=== PATIENT | female | born 1965 | race Caucasian/White ===

== ENCOUNTER 2023-07-26 09:47 | Outpatient (CLI) | payer OTHER, SELFPAY | END 2023-07-26 09:48 | disposition home or self-care (01) | LOC: INJ CL 09:50 | PROVIDERS: PCP Family Medicine; Visit Provider Family Medicine | DX: M54.16 Radiculopathy, lumbar region (principal); M51.36 Other intervertebral disc degeneration, lumbar region | CPT/HCPCS: 62323; J0702 ==

== ENCOUNTER 2025-01-17 11:04 | Outpatient (CLI) | payer BC, SELFPAY ==
--- NOTE | 2025-01-17 11:15 | CRLHL7_ITS ---
For Patients: As a result of the Century Cures Act, medical imaging exams and procedure reports are released immediately into your electronic medical record. You may view this report before your referring provider. If you have questions, please contact your health care provider. INDICATION : Right thyroid nodule. TECHNIQUE : Ultrasound-guided fine needle aspiration of thyroid nodule. COMPARISON : Ultrasound 12/27/2024 FINDINGS : PROCEDURE: After the informed consent and time-out, multiple fine needle aspirations were obtained from the thyroid nodule. Fine needle performed. 25 gauge needles were used. Lidocaine was used for local anesthesia. The preliminary cytology was adequate for interpretation. Real-time imaging was used for guidance and needle placement. Post imaging ultrasound demonstrates no immediate complication. IMPRESSION : Successful fine needle aspiration of right thyroid lobe nodule. Dictated by Butch Raymond MD @ 01/17/2025 1:16:07 PM (Electronically Signed)
== END 2025-01-17 11:05 | disposition home or self-care (01) ==
LOC: US 11:05
PROVIDERS: PCP Family Medicine; Visit Provider Family Medicine
DX: E04.2 Nontoxic multinodular goiter (principal)
CPT/HCPCS: 10005; 76942; 88173

== ENCOUNTER 2025-08-19 19:01 | Emergency (ER) | payer BC, SELFPAY ==
--- OUTSIDE RECORDS SUMMARY | 2025-07-23 15:52 | XMS_ITS | Encounter Summary ---
Author Organization [facility] Address [address] [place] [address] Care Team Providers Care Medicare Insurance Specialist Name Role Phone Elsewhere, Pcp Primary Care Provider Unavailabl e Encounter Details DateTypeDepartmentCare Team (Latest Contact Info)Ymiykogopfa35/02/2025 3:52 PM CONVEYOR LINE BATTERY CHARGER - 07/23/2025 11:59 PM CSTHospital Encounter Department of Laboratory Medicine in [place], [place] [address] [facility] [place] [phone] Gerda Higuera, LORENA, C.N.P., M.S. 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) Discharge Disposition: Home or Self Care Social History Tobacco UseTypesPacks/DayYears UsedDateSmoking Tobacco: NeverPassive Smoke Exposure: NeverSmokeless Tobacco: NeverAlcohol UseStandard Drinks/WeekComments Yes2 (1 standard drink = 0.6 oz pure alcohol)1-2 glasses of wine per week Humiliation, Afraid, Rape, and Kick questionnaireAnswerDate RecordedWithin the last year, have you been afraid of your partner or ex-partner?No01/25/2023Within the last year, have you been humiliated or emotionally abused in other ways by your partner or ex-partner?No01/25/2023Within the last year, have you been kicked, hit, slapped, or otherwise physically hurt by your partner or ex-partner?No01/25/2023Within the last year, have you been raped or forced to have any kind of sexual activity by your partner or ex-partner?No01/25/2023 Hunger Vital SignAnswerDate RecordedWithin the past 12 months, you worried that your food would run out before you got the money to buymore.Never true07/22/2025 Within the past 12 months, the food you bought just didn't last and you didn't have money to get more.Never true07/22/2025PRAPARE - TransportationAnswerDate RecordedIn the past 12 months, has lack of transportation kept you from medical appointments or from getting medications?No07/22/2025In the past 12 months, has lack of transportation kept you from meetings, work, or from getting things needed for daily living?No07/22/2025HC UtilitiesAnswerDate RecordedIn the past 12 months has the [employer], gas, oil, or water [employer] threatened to shut off services in your home?No07/22/2025Housing StabilityAnswerDate RecordedWhat is your living situation today?I have a steady place to live07/22/2025 CommentsNoSex and Gender InformationValueDate RecordedSex Assigned at Zfubua9111/17/2017 9:23 PM CDTLegal BgtClyhiu22/02/2017 11:29 PM CSTGender MutlvbihBllsdg48/29/2018 9:23 PM CDTSexual BypwqodjcrsEsfwzswp16/29/2018 9:23 PM 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 BathNot on fileNot on fileNot on filedocumented as of this encounter Medications at Time of Discharge MedicationSigDispense QuantityRefillsLast FilledStart DateEnd Date albuterol 90 mcg/actuation inhaler Inhale 1-2 puffs.05/11/2021 calcium carbonate-vitamin D3 500 mg(1,250mg) -400 unit tablet Take 1 tablet by mouth daily.06/14/2017 cetirizine (for_ZyrTEC) 10 mg tablet Take 10 mg by mouth daily as needed for allergies.03/24/2012 cholecalciferol (for_VITAMIN D3) 1,000 Unit capsule Take 1,000 Units by mouth daily.06/14/2017 estradioL (ESTRACE) 0.5 mg tablet 06/20/2022 famotidine (Pepcid) 20 mg tablet Take 20 mg by mouth 2 (two) times a day.07/18/2024 fluticasone (for_FLONASE) 50 mcg/actuation nasal spray Administer 1 spray into each nostril daily as needed for allergies.07/29/2016 multivitamin tablet Take 1 tablet by mouth daily.04/23/2011 omega 2-rim-ejs-fish oil 1,000 mg (120 mg-180 mg) capsule Take 1,000 mg by mouth 2 (two) times a day. 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) ASPARTATE AMINOTRANSFERASE (AST), S/XPsgtdjy68/02/2025 4:01 PM CONVEYOR LINE BATTERY CHARGER Leukemia Hairy Cell 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 Remission (HCC) ALKALINE PHOSPHATASE, S/GEdbxbaj53/02/2025 4:01 PM CONVEYOR LINE BATTERY CHARGER Leukemia Hairy Cell 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 Remission (HCC) LACTATE DEHYDROGENASE (LD), GAybqsjj53/02/2025 4:01 PM CONVEYOR LINE BATTERY CHARGER Leukemia Hairy Cell 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 Remission (HCC) IMMUNOGLOBULIN G (IGG), VRfggeck94/02/2025 4:01 PM CONVEYOR LINE BATTERY CHARGER Leukemia Hairy Cell 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 Remission (HCC) CREATININE WITH EGFR, S/CCilfdjy32/02/2025 4:01 PM CONVEYOR LINE BATTERY CHARGER Leukemia Hairy Cell 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 Remission (HCC) BILIRUBIN, TOT, S/CGzkkfbk07/02/2025 4:01 PM CONVEYOR LINE BATTERY CHARGER Leukemia Hairy Cell 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 Remission (HCC) documented in this encounter Results * Reticulocyte Profile (07/23/2025 4:01 PM CONVEYOR LINE BATTERY CHARGER)ComponentValueRef RangeTest MethodAnalysis TimePerformed AtPathologist SignatureReticulocytes, B1.400.60 - 2.71 %07/23/2025 10:22 PM CSTAUSTAbsolute Yhnhzarzqcyj89.330.4 - 110.9 x10(9)/L109/23/2024 10:22 PM CSTAUSTImmature Reticulocyte Fraction6.23.0 - 15.9 %07/23/2025 10:22 PM CSTAUSTReticulocyte Bptppmdnja46.530.0 - 37.6 pg 07/23/2025 10:22 PM CSTAUSTSpecimen (Source)Anatomical Location / Laterality Collection Method / VolumeCollection TimeReceived TimeBlood (Blood, Venous) 07/23/2025 4:01 PM CST07/23/2025 9:48 PM CONVEYOR LINE BATTERY CHARGER Narrative Authorizing ProviderResult TypeResult StatusAmy Ceci Higuera APRN C.N.P., M.S.LAB BLOOD ADD-ONFinal ResultPerforming OrganizationAddressCity/State/ZIP CodePhone Number [facility] [address] [place] [address], [facility] AUSChi [facility] - [facility] [address] [place] [address] * Immunoglobulin G (IgG) (07/23/2025 4:01 PM CONVEYOR LINE BATTERY CHARGER)ComponentValueRef RangeTest MethodAnalysis TimePerformed AtPathologist SignatureImmunoglobulin G (IgG), S 890646 - 1590 mg/dL07/24/2025 8:24 AM CSTSDSCSpecimen (Source)Anatomical Location / LateralityCollection Method / VolumeCollection TimeReceived Time Blood (Blood, Venous)07/23/2025 4:01 PM CST07/24/2025 6:36 AM CONVEYOR LINE BATTERY CHARGER Narrative Authorizing ProviderResult TypeResult StatusAmy L Behkirit CARRILLO C.N.P., M.S.LAB BLOOD ADD-ONFinal ResultPerforming OrganizationAddressCity/State/ZIP CodePhone Number [facility] [address] [place] [address] [facility] [address] [place] [address] * LD (Lactate Dehydrogenase) (07/23/2025 4:01 PM CONVEYOR LINE BATTERY CHARGER)ComponentValueRef RangeTest MethodAnalysis TimePerformed AtPathologist SignatureLactate Dehydrogenase (LD), [id number] - 222 U/L109/23/2024 10:02 PM CSTAUSTSpecimen (Source)Anatomical Location / LateralityCollection Method / VolumeCollection TimeReceived Time Blood (Blood, Venous)07/23/2025 4:01 PM CST07/23/2025 9:48 PM CONVEYOR LINE BATTERY CHARGER Narrative Authorizing ProviderResult TypeResult StatusAmy Ceci Higuera APRN, C.N.P., M.S.LAB BLOOD NON ADD-ONFinal ResultPerforming OrganizationAddressCity/State/ZIP Code Phone Number [facility] [address] [place] [address], [facility] AUS [facility] - [facility] [address] [place] [address] * Creatinine with Estimated GFR (07/23/2025 4:01 PM CONVEYOR LINE BATTERY CHARGER)ComponentValueRef Range Test MethodAnalysis TimePerformed AtPathologist SignatureCreatinine0.720.59 - 1.04 mg/dL07/23/2025 6:02 PM CSTOWATEstimated GFR (eGFR)>90>=60 mL/min/BSA 07/23/2025 6:02 PM CSTOWATComment: Estimated GFR calculated using the 2020 CKD_EPI creatinine equation. Specimen (Source)Anatomical Location / LateralityCollection Method / Volume Collection TimeReceived TimeBlood (Blood, Venous)07/23/2025 4:01 PM CONVEYOR LINE BATTERY CHARGER 07/23/2025 5:33 PM CONVEYOR LINE BATTERY CHARGER Narrative Authorizing ProviderResult TypeResult StatusAmy Ceci Higuera APRN, C.N.P., M.S.LAB BLOOD ADD-ONFinal ResultPerforming OrganizationAddressCity/State/ZIP CodePhone Number [facility] [address] [place] [address], [facility] OWAT [facility] [place] [address] [place] [address] * (ABNORMAL) CBC with Differential, Blood (07/23/2025 4:01 PM CONVEYOR LINE BATTERY CHARGER)ComponentValue Ref RangeTest MethodAnalysis TimePerformed AtPathologist SignatureHemoglobin 13.511.6 - 15.0 g/dL07/23/2025 5:34 PM BTIZFGSTlokniwwnx10.535.5 - 44.9 % 07/23/2025 5:34 PM CSTOWATErythrocytes4.293.92 - 5.13 x10(12)/L109/23/2024 5:34 PM QWGZKVRALC47.178.2 - 97.9 fL07/23/2025 5:34 PM CSTOWATRBC Distrib Width11.7 (L)12.2 - 16.1 %07/23/2025 5:34 PM CSTOWATPlatelet Eijbg167453 - 371 x10(9)/L 07/23/2025 5:34 PM CSTOWATLeukocytes5.83.4 - 9.6 x10(9)/L109/23/2024 5:34 PM CSTOWATNeutrophils3.401.56 - 6.45 x10(9)/L109/23/2024 5:34 PM CSTOWAT Lymphocytes1.610.95 - 3.07 x10(9)/L109/23/2024 5:34 PM CSTOWATMonocytes0.640.26 - 0.81 x10(9)/L109/23/2024 5:34 PM CSTOWATEosinophils0.150.03 - 0.48 x10(9)/L 07/23/2025 5:34 PM CSTOWATBasophils0.030.01 - 0.08 x10(9)/L109/23/2024 5:34 PM CSTOWATSpecimen (Source)Anatomical Location / LateralityCollection Method / VolumeCollection TimeReceived TimeBlood (Blood, Venous)07/23/2025 4:01 PM CONVEYOR LINE BATTERY CHARGER 07/23/2025 5:33 PM CONVEYOR LINE BATTERY CHARGER Narrative Authorizing ProviderResult TypeResult StatusAmy L Behkirit CARRILLO C.N.P., M.S.LAB BLOOD ADD-ONFinal ResultPerforming OrganizationAddressCity/State/ZIP CodePhone Number [facility] [address] [place] [address], [facility] [place] [address] [place] [address] * Bilirubin, Total (07/23/2025 4:01 PM CONVEYOR LINE BATTERY CHARGER)ComponentValueRef RangeTest Method Analysis TimePerformed AtPathologist SignatureBilirubin, Total, P0.40.0 - 1.2 mg/dL07/23/2025 6:02 PM CSTOWATSpecimen (Source)Anatomical Location / LateralityCollection Method / VolumeCollection TimeReceived TimeBlood (Blood, Venous)07/23/2025 4:01 PM CST07/23/2025 5:33 PM CONVEYOR LINE BATTERY CHARGER Narrative Authorizing ProviderResult TypeResult StatusAmy Ceci Higuera APRN, C.N.P., M.S.LAB BLOOD ADD-ONFinal ResultPerforming OrganizationAddressCity/State/ZIP CodePhone Number [facility] [address] [place] [address], [facility] [place] [address] [place] [address] * AST (Aspartate Aminotransferase) (07/23/2025 4:01 PM CONVEYOR LINE BATTERY CHARGER)ComponentValueRef RangeTest MethodAnalysis TimePerformed AtPathologist SignatureAspartate Aminotransferase (AST), P288 - 43 U/L109/23/2024 6:02 PM CSTOWATSpecimen (Source)Anatomical Location / LateralityCollection Method / VolumeCollection TimeReceived TimeBlood (Blood, Venous)07/23/2025 4:01 PM CST07/23/2025 5:33 PM CONVEYOR LINE BATTERY CHARGER Narrative Authorizing ProviderResult TypeResult StatusAmy Ceci Higuera APRN, C.N.P., M.S.LAB BLOOD ADD-ONFinal ResultPerforming OrganizationAddressCity/State/ZIP CodePhone Number [facility] [address] [place] [address], [facility] [place] [address] [place] [address] * Alkaline Phosphatase (07/23/2025 4:01 PM CONVEYOR LINE BATTERY CHARGER)ComponentValueRef RangeTest MethodAnalysis TimePerformed AtPathologist SignatureAlkaline Phosphatase, P48 35 - 104 U/L109/23/2024 6:02 PM CSTOWATSpecimen (Source)Anatomical Location / LateralityCollection Method / VolumeCollection TimeReceived TimeBlood (Blood, Venous)07/23/2025 4:01 PM CST07/23/2025 5:33 PM CONVEYOR LINE BATTERY CHARGER Narrative Authorizing ProviderResult TypeResult StatusAmy L Davida CARRILLO, C.N.P., M.S.LAB BLOOD ADD-ONFinal ResultPerforming OrganizationAddressCity/State/ZIP CodePhone Number [facility] [address] [place] [address], [facility] [place] [address] [place] [address] documented in this encounter Visit Diagnoses Diagnosis 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
--- OUTSIDE RECORDS SUMMARY | 2025-07-26 16:00 | XMS_ITS | Encounter Summary ---
Author Organization [facility] Address [address] [place] [address] Care Team Providers Care Speech Scientist Name Role Phone Elsewhere, Pcp Primary Care Provider Unavailabl e Reason for Referral * Outpatient (Routine) - AuthorizedSpecialtyDiagnoses / ProceduresReferred By ContactReferred To ContactHematology Oncology Diagnoses 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) Gerda Higuera APRN, C.N.P., M.S. 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 [address] [place] [address] Phone: tel: fax: [facility] Referral IDStatusReasonStart DateExpiration DateVisits RequestedVisits [id number]/24/202512/24/202611 Encounter Details DateTypeDepartmentCare Team (Latest Contact Info)Aqikszflkgw76/05/2025 4:00 PM CSTTelemedicine Division of Hematology in [place], [place] [address] [place] [address] Gerda Higuera, LORENA, C.N.P., M.S. [address] [place] [phone] 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) (Primary Dx) Social History Tobacco UseTypesPacks/DayYears UsedDateSmoking Tobacco: NeverPassive [...] RecordedIn the past 12 months has the electric, gas, oil, or water company threatened to shut off services in your home?No07/22/2025Housing StabilityAnswerDate RecordedWhat is your living situation today?I have a steady place to live07/22/2025 CommentsNoSex and Gender InformationValueDate RecordedSex Assigned at Fnddpw6611/17/2017 9:23 PM CDTLegal VorLxbzvq60/02/2017 11:29 PM CSTGender SgijffkwYkpmsz49/29/2018 9:23 PM CDTSexual QeqqstfhawrNmppzaus98/29/2018 9:23 PM CDTOccupationIndustryJob Start DateJob End 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 - 07/26/2025 4:00 PM CST SUBJECTIVE Primary manager mutual fund: Dr. Rah Parks ([phone]) CHIEF COMPLAINT/REASON FOR VISIT Hairy cell leukemia follow up Consult conducted via real-time audio/video technology by Gerda Higuera APRN, Surinder.N.P., M.S. in [facility] to the patient in Patient's Home HISTORY OF PRESENT ILLNESS Oncology History Overview Note 1. January 2013, Mrs. [place] was diagnosed with hairy cell leukemia in the course of evaluation of thrombocytopenia and mild splenomegaly in January 2013. 2. On March 01, 2013, received the first treatment with cladribine infusion lasting for seven days. She tolerated the infusion well. Had no significant side effects except for discomfort in the upper abdomen as well as in the middle of the chest. CT study, chemistry, and labs were completely normal.Several days after the infusion was completed, the patient developed a rash, went to the ER, and had received dexamethasone and Benadryl. The rash resolved by itself. She developed neutropenia which improved gradually. 3. April 2013, was found to have malaise, headaches, and low-grade temperature. Due to concern for cladribine-induced immunosuppression, an LP was done, which did not show evidence of fungal or viral infection. In May 2013, the patient had a bone marrow biopsy which did not show residual disease with normalized blood counts. Surveillance was started. October 2019: She was noted to have increasing monocytopenia and bone pain suggestive of recurrentdisease. A repeat bone marrow biopsy showed 10% focal involvement by hairy cell leukemia. CBC profile showed that the hemoglobin was 13.8, platelet count is a 156, and the total WBC count is 3.4 withan absolute neutrophil count of 2.03. She therefore started treatment with pentostatin [2 mg/m2] and rituximab [187.5 mg/m2] on October 31, 2019; and received only 1 cycle of this treatment. Because ofthe start of the COVID-19 pandemic, further treatment with pentostatin and rituximab was suspended. INTERVAL HISTORY The patient returns to the clinic today via video visit. Since her last visit; which was 6 months ago; she has been doing OK. She does note that last month she had a bout of vertigo and needed to seePT/OT for this. She has had this once in the past as well. She denies any fevers, infections, illness or other concerns. 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 ROS: Reviewed and negative unless otherwise noted in HPI. Current Outpatient Medications Medication Instructions albuterol 90 mcg/actuation inhaler 1-2 puffs calcium carbonate-vitamin D3 500 mg(1,250mg) -400 unit tablet 1 tablet, Daily cetirizine (ZYRTEC) 10 mg, Daily PRN cholecalciferol (VITAMIN D3) 1,000 Units, Daily estradioL (ESTRACE) 0.5 mg tablet No dose, route, or frequency recorded. famotidine (PEPCID) 20 mg, 2 times daily fluticasone (for_FLONASE) 50 mcg/actuation nasal spray 1 spray, Daily PRN multivitamin tablet 1 tablet, Daily omega 0-rfu-xlr-fish oil 1,000 mg (120 mg-180 mg) capsule 1,000 mg, 2 times daily predniSONE (DELTASONE) 10 mg, Daily rosuvastatin (CRESTOR) 5 mg tablet OBJECTIVE There were no vitals filed for this visit. There is no height or weight on file to calculate BSA. Current Outpatient Medications: albuterol 90 mcg/actuation inhaler, Inhale 1-2 puffs., Disp: , Rfl: calcium carbonate-vitamin D3 500 mg(1,250mg) -400 unit tablet, Take 1 tablet by mouth daily. , Disp: , Rfl: cetirizine (for_ZyrTEC) 10 mg tablet, Take 10 mg by mouth daily as needed for allergies. , Disp: , Rfl: cholecalciferol (for_VITAMIN D3) 1,000 Unit capsule, Take 1,000 Units by mouth daily. , Disp: , Rfl: estradioL (ESTRACE) 0.5 mg tablet, , Disp: , Rfl: famotidine (Pepcid) 20 mg tablet, Take 20 mg by mouth 2 (two) times a day., Disp: , Rfl: fluticasone (for_FLONASE) 50 mcg/actuation nasal spray, Administer 1 spray into each nostril daily as needed for allergies. , Disp: , Rfl: multivitamin tablet, Take 1 tablet by mouth daily. , Disp: , Rfl: omega 8-azg-fot-fish oil 1,000 mg (120 mg-180 mg) capsule, Take 1,000 mg by mouth 2 (two) times a day., Disp: , Rfl: predniSONE (Deltasone) 10 mg tablet, Take 10 mg by mouth daily., Disp: , Rfl: rosuvastatin (CRESTOR) 5 mg tablet, , Disp: , Rfl: PHYSICAL EXAM: General: pleasant, nontoxic appearing, in no acute distress. Neuro: alert and oriented to person, place, and time; no focal deficits noted Eyes: anicteric, with extraocular movements intact Lungs: breathing comfortably on room air Remainder deferred due to video visit. DIAGNOSTICS Reviewed in [facility] from 07/23/2025 ASSESSMENT/PLAN #1 Hairy cell leukemia, with initial diagnosis in 2012, status post therapy with single agent cladribine, achievement of complete remission, with recurrent disease in October 2019, with 1 cycle of therapy with pentostatin and rituximab, with a achievement of complete remission, with no evidence of recurrence today, with continued observation Labs reveal no cytopenias. In previous times of treatment she has had neutropenia, thrombocytopeniaand monocytopenia. We will plan to see her back again in 6 months in person or sooner if needed. Patient is in agreement with the plan today. She knows how to get in touch with our team in betweenappointments if needed. PLAN: Observation FOLLOW UP: Return to clinic in 6 months PATIENT EDUCATION Ready to learn, no apparent learning barriers were identified; learning preferences include listening. Explained diagnosis and treatment plan; patient expressed understanding of the content. ANDREA Merrill personally spent over half of a total of 25 minutes face to face with the patient in counseling and discussion and/or coordination of care as described above. Electronically signed by: Gerda Higuera APRN, C.Tobias, M.S. 07/26/2025 4:12 PM [facility] documented in this encounter Plan of Treatment NameTypePriorityAssociated DiagnosesOrder ScheduleAlkaline PhosphataseLabRoutine 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) Expected: 01/13/2026 (Approximate), Expires: 10/24/2026ST (Aspartate Aminotransferase)LabRoutine 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) Expected: 01/13/2026 (Approximate), Expires: 10/24/2026ilirubin, TotalLab Routine 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) Expected: 01/13/2026 (Approximate), Expires: 10/24/2026CBC with Differential, BloodLabRoutine 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) Expected: 01/13/2026 (Approximate), Expires: 10/24/2026Creatinine with Estimated GFRLabRoutine 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) Expected: 01/13/2026 (Approximate), Expires: 10/24/2026LD (Lactate Dehydrogenase)LabRoutine 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) Expected: 01/13/2026 (Approximate), Expires: 10/24/2026Reticulocyte ProfileLab Routine 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) Expected: 01/13/2026 (Approximate), Expires: 07/26/2026Immunoglobulin G (IgG)Lab Routine 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) Expected: 01/13/2026 (Approximate), Expires: 10/24/2026NameTypePriority Associated DiagnosesOrder ScheduleHematology office visit (clinic) [place]; CLL; GeneralOutpatient ReferralRoutine 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) Expected: 01/13/2026 (Approximate), Expires: 10/24/2026documented as of this encounter Visit Diagnoses Diagnosis 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)- Primary documented in this encounter Care Teams Team MemberRelationshipSpecialtyStart DateEnd Date Elsewhere, Pcp PCP - General Medicine11/18/17documented as of this encounter
--- OUTSIDE RECORDS SUMMARY | 2025-08-19 19:03 | XMS_ITS | Clinical Summary ---
Author Organization [facility] Address [address] [place] [address] Care Team Providers Care Csw Name Role Phone Elsewhere, Pcp Primary Care Provider Unavailabl e Source Comments Patient records contain information from all sites at [facility]. For routine questions regarding patient records, call [phone] during business hours, M-F 8:00 AM - 5:00 PM Central Time. Record requests for emergency care only can be directed to [phone] at any time.[facility] Allergies Active AllergyReactionsCriticalityNoted DateCommentsCiprofloxacinPalpitations 09/03/20066624FoizoxailrRkoqWakilz86/24/2019Diatrizoate FlpwarsuoMivb19/14/2017 Itching Next day rash on entire body, some throat tightness. 3 days later rash not improved with medication, leg/feet swelling, eye pain (see encounter from 02/04/17) Iodinated Contrast LhprkJdof39/13/2017 rash NitrofurantoinOther (see comments)03/27/2012 Leukemia-related problems Sars-Cov-2 (Covid-19) - PfizerAnaphylaxis,Anxiety,Edema (Reselect Reaction), Headache,Palpitations,Shortness of breath (Reselect Reaction)High10/26/2020 Medications * This document contains information received from the source organization and may not represent a complete record from that organization. MedicationSigDispense QuantityRefillsLast FilledStart DateEnd DateStatus calcium carbonate-vitamin D3 500 mg(1,250mg) -400 unit tablet Take 1 tablet by mouth daily.06/14/2017Active cetirizine (for_ZyrTEC) 10 mg tablet Take 10 mg by mouth daily as needed for allergies.03/24/2012ctive cholecalciferol (for_VITAMIN D3) 1,000 Unit capsule Take 1,000 Units by mouth daily.06/14/2017Active fluticasone (for_FLONASE) 50 mcg/actuation nasal spray Administer 1 spray into each nostril daily as needed for allergies.07/29/2016 Active multivitamin tablet Take 1 tablet by mouth daily.04/23/2011ctive omega 0-mhz-xls-fish oil 1,000 mg (120 mg-180 mg) capsule Take 1,000 mg by mouth 2 (two) times a day.Active albuterol 90 mcg/actuation inhaler Inhale 1-2 puffs.1Active estradioL (ESTRACE) 0.5 mg tablet 06/20/2022ctive rosuvastatin (CRESTOR) 5 mg tablet 3Active famotidine (Pepcid) 20 mg tablet Take 20 mg by mouth 2 (two) times a day.4Active predniSONE (Deltasone) 10 mg tablet Take 10 mg by mouth daily.5Active Active Problems ProblemNoted DateDiagnosed DateNeed Vaccine Itwnxmlddvhx00/16/2021Reaction Anaphylactic Personal Izrvixf25/16/2021Pain Shoulder Left08/29/2020 Gwinimocxilghqv46/05/2021creening Mammogram Average Risk Zxhtaho0605/23/2019Pain Bone03/14/20190843Ijibushhh42/08/2019 Overview (09/29/2018): Added automatically from request for surgery [id number] Stone Kidney And Siwdnsze40/08/2019 Overview (09/29/2018): Added automatically from request for surgery [id number] Leiomyoma (Fibroid) Oixtny0802/02/2018 Overview (02/02/2018): Added automatically from request for surgery [id number] Exposure Diethylstilbestrol When Was Fetus Not Now11/18/2017 Overview (11/18/2017): SEVERINO exposure when fetus Pain Pelvic Tsjapy3911/18/20174964Fdtgsbllknozeo28/17/2017Calculus of huwwku3902/09/2017 Sjksiezt30/09/2015 Overview (11/16/2017): Overview: Taking Ativan 0.5 mg at bedtime for sleep. Working on insomnia issues. Ok for #30 to last for 2 months. JMB Polyp Colon Personal History, Unspecified Type03/20/2014Deficiency Vitamin D 03/20/2014Squamous Cell Carcinoma Of Skin Of Scalp And Neck08/22/2012 Yvjxatqbpwvm62/03/2010Cystitis Interstitial Asropfg2306/24/2010Fibroid Uterus Yfgrnoidfy87/03/2010Headache Xvpaqsmhtpy81/10/2834Qsuqrubomuwh87/10/2008 Premenstrual Tension Kjfccxmj73/21/2007Pure Tnutctmvldbqerpqrfxi88/21/2007 Rhinitis Mtmltuav49/13/2007Fibrocystic Breast Qbhyditvc55/13/2007 Resolved Problems ProblemNoted DateDiagnosed DateResolved DateHairy Cell Leukemia In Remission Palpitations12/25/Lipoma09/07/ Dyspnea NOS03/02/Irritable Huiydiq52Cystocele Frequency Txdtjoe69Irregular menstrual cycle Encounters DateTypeDepartmentCare KmntCokmmrmfmgy69/05/2025 4:00 PM CSTTelemedicine Division of Hematology in [place], [place] [address] [place] [address] Gerda Higuera APRN, C.N.P., M.S. 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 Leukemia Hairy Cell 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 Remission (HCC) Discharge Disposition: Home or Self Carefrom Last 3 Months Immunizations ImmunizationAdministration DatesNext DmiM6N4 All Forms08/29/2009H1N1 Inj 08/29/2009HepA Adult06/21/1997,11/09/1996Influenza, Seasonal, Injectable 07/06/2013,08/16/2012,07/01/2006,06/23/2005,08/10/2004,06/20/2003Influenza, Nvnqsqiuivx35/10/2006,06/23/2005,08/10/2004,06/20/20031048BGII-JUU-8 (COVID-19) - PFIZER (Discontinued)(12 years or older)09/11/20215123IREW-DIX-4 (COVID-19) - PFIZER BIVALENT TS(Discontinued)(12 YEARS OR OLDER)06/25/20220779NERE-WNU-8 (COVID-19) - PFIZER TS(Discontinued)(12 years or older)08/13/2021Td (Adult), adsorbed 05/22/2003Tdap03/24/2012,08/22/2002influenza trivalent vaccine (6 months and older)(PF)05/07/2010influenza vaccine quad (FLUZONE/FLUARIX) (6 months and older)(PF)04/30/2017,04/23/2016,04/14/2015,08/28/2014 Family History Medical HistoryRelationNameCommentsArrhythmiaDaughterJessicaShe also had uticaria pigmentosaColon polypsFatherMarlin WegnerDementiaFatherMarlin Kailey HypertensionFatherMarlin WegnerSkin cancerFatherMarlin WegnerHypertensionMother Alyse WegnerOsteoporosisMotherPhyllis WegnerSkin cancerMotherPhyllis Kailey Thyroid diseaseMotherPhyllis WegnerThyroid cancerSisterKrisADD / ADHDSonRyan JandroAsthmaSonRyan JandroRelationNameStatusCommentsDaughterJessicaDeceased FatherMarlin WegnerDeceasedMotherPhyllis WegnerSisterKrisAliveSonRyan Jandro Social History Tobacco UseTypesPacks/DayYears UsedDateSmoking Tobacco: NeverPassive Smoke Exposure: NeverSmokeless Tobacco: Never Tobacco Cessation:Counseling Given: Not Answered Alcohol UseStandard Drinks/WeekCommentsYes2 (1 standard drink = 0.6 oz pure alcohol)1-2 glasses of wine per weekHumiliation, Afraid, Rape, and Kick questionnaireAnswerDate RecordedWithin the last year, have you been afraid of your partner or ex-partner?No01/25/2023Within the last year, have you been humiliated or emotionally abused in other ways by your partner or ex-partner?No 01/25/2023Within the last year, have you been kicked, hit, slapped, or otherwise physically hurt by your partner or ex-partner?No01/25/2023Within the last year, have you been raped or forced to have any kind of sexual activity by your part ner or ex-partner?No01/25/2023Hunger Vital SignAnswerDate RecordedWithin the past 12 months, you worried that your food would run out before you got the money to buymore.Never true07/22/2025Within the past 12 months, the food you bought just didn't last and you didn't have money to get more.Never true 07/22/2025PRAPARE - TransportationAnswerDate RecordedIn the past 12 months, has lack of transportation kept you from medical appointments or from getting medications?No07/22/2025In the past 12 months, has lack of transportation kept you from meetings, work, or from getting things needed for daily living?No 07/22/2025HC UtilitiesAnswerDate RecordedIn the past 12 months has the M[place], [place], oil, or water REHAPP threatened to shut off services in your home?No07/22/2025Housing StabilityAnswerDate RecordedWhat is your living situation today?I have a steady place to live07/22/2025CommentsNoSex and Gender InformationValueDate RecordedSex Assigned at ExnxcUiqony96/29/2018 9:23 PM CDTLegal TgnNqfdgt72/02/2017 11:29 PM CSTGender MkytkigeVejbuc46/29/2018 9:23 PM CDTSexual KibqbtbqqkuUcsecfpt01/29/2018 9:23 PM CDTOccupationIndustryJob Start 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 SawyerNot on fileNot on file Not on file Last Filed Vital Signs Vital SignReadingTime TakenCommentsBlood Zvcmetiv026/85002/12/2025 1:50 PM CDT Jpyop880602/12/2025 1:50 PM HNNDkskljdkysb98.6 ??C (97.9 ??F)02/12/2025 1:50 PM CDTRespiratory Aucu8292 2:00 PM CSTOxygen Vmegprnerh906%08/13/2021 2:00 PM CSTInhaled Oxygen Concentration--Zstgqr12.3 kg (181 lb 7 oz)02/12/2025 1:50 PM GALKpmqrp976.6 cm (5' 7.56)02/12/2025 1:50 PM CDTBody Mass Index27.95 02/12/2025 1:50 PM CDT Plan of Treatment Health MaintenanceDue DateLast DoneCommentsCT Xjfkxjfeytep1965Cologuard 1965HIV Ydllwwegx1965Hepatitis B Vaccines (1 of 3 - 19+ 3-dose series)1986Pneumococcal vaccine (50+ years) (3 of 3 - PCV20 or PCV21) /, 04/17/2018Depression Screening (Annual PHQ-2)08/22/2024 COVID-19 Vaccine (2024- season), 06/27/2023, 06/25/2022, Additional history lostnlXgxfnfwjn45, 12/19/2024, 12/15/2023, Additional history vqqcgwKxcrcwlpytr18/14/202606/, 02/20/2015, 01/27/2015 (Performed elsewhere)Colorectal Cancer Surveillance 02/02/2026Fasting Glucose for Diabetes Ywxzkwlkq01, 11/25/2022, 10/21/2021, Additional history existsLipid (Cholesterol) Screening 9012/02/2023, 05/19/2023, 11/25/2022, Additional history exists DTaP,Tdap,and Td Vaccines (5 - Td or Tdap), 03/24/2012, 05/22/2003, Additional history existsHepatitis A UantlezjMejfvmajd70/31/1997, 11/09/1996Zoster KtoqiijyLrlzbxvsj90/08/2019, 04/05/2019Hepatitis B Screening Rtollebqoxrd95/12/2020Influenza FlilpuvDvqvddmfh81/21/2025, 06/13/2024, 06/22/2023, Additional history existsIPV VaccinesAged OutNo longer eligible based on patient's age to complete this topic Medical Devices ImplantedTypeAreaManufacturerDevice IdentifierShelf Expiration DateModel / Serial / LotEssure Implanted:03/03/2017 (Quantity not on file)Gynecologic OtherOther/Legacy - See Implant DescriptionDescription:Body Location - Other. fallopian tubes. Device Status Text - Welfare Case Worker Other.Stnt Uret Inl 7fx24 - [id number] Implanted:Qty: 1 on 10/12/2018 [facility].R.[id number] / / [id number] Procedures Procedure NamePriorityDate/TimeAssociated DiagnosisCommentsRETICULOCYTE PROFILE, UFttzenc26/02/2025 4:01 PM BARBER OR BEAUTY SHOP MANAGER Leukemia Hairy Cell 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 Remission (HCC) IMMUNOGLOBULIN G (IGG), OYxglgmb58/02/2025 4:01 PM BARBER OR BEAUTY SHOP MANAGER Leukemia Hairy Cell 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 Remission (HCC) LACTATE DEHYDROGENASE (LD), MIzxcgqb06/02/2025 4:01 PM BARBER OR BEAUTY SHOP MANAGER Leukemia Hairy Cell 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 Remission (HCC) CREATININE WITH EGFR, S/GGwhzzem30/02/2025 4:01 PM BARBER OR BEAUTY SHOP MANAGER Leukemia Hairy Cell 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 Remission (HCC) CBC WITH DIFFERENTIAL, XCkgzdec36/02/2025 4:01 PM BARBER OR BEAUTY SHOP MANAGER Leukemia Hairy Cell 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 Remission (HCC) BILIRUBIN, TOT, S/QGfvdbbk95/02/2025 4:01 PM BARBER OR BEAUTY SHOP MANAGER Leukemia Hairy Cell 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 Remission (HCC) ASPARTATE AMINOTRANSFERASE (AST), S/HUuhpnlr11/02/2025 4:01 PM BARBER OR BEAUTY SHOP MANAGER Leukemia Hairy Cell 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 Remission (HCC) ALKALINE PHOSPHATASE, S/WXbbmsrl58/02/2025 4:01 PM BARBER OR BEAUTY SHOP MANAGER Leukemia Hairy Cell 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 Remission (HCC) BI BREAST SCREENING BILATERAL WITH TOMOSYNTHESISRAD - Routine (most inpatients and all outpatients)10/15/2021 3:23 PM BARBER OR BEAUTY SHOP MANAGER Fibrocystic Breast Bilateral Screening Mammogram Average Risk Patient 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) LUVEKVRJXNPMrhfnqn27/14/2021 12:19 PM CDT Polyp Colon Adenomatous Diarrhea COMPREHENSIVE METABOLIC PANEL, S/ABpplcbc27/08/2021 9:13 AM BARBER OR BEAUTY SHOP MANAGER Hairy Cell Leukemia In Relapse (HCC) Lymphadenopathy HEPATITIS B SURFACE IVPSSQEEbrfizl43/12/2020 2:01 PM BARBER OR BEAUTY SHOP MANAGER Hairy Cell Leukemia In Relapse (HCC) LIPID PANEL, BXemhfgf34/06/2015 8:40 AM CDT from Last 3 Months or Most Recently Relevant to Health Maintenance Results * Reticulocyte Profile (07/23/2025 4:01 PM BARBER OR BEAUTY SHOP MANAGER)ComponentValueRef RangeTest MethodAnalysis TimePerformed AtPathologist SignatureReticulocytes, B1.400.60 - 2.71 %07/23/2025 10:22 PM CSTAUSTAbsolute Ssujncubbnmo97.330.4 - 110.9 x10(9)/L109/23/2024 10:22 PM CSTAUSTImmature Reticulocyte Fraction6.23.0 - 15.9 %07/23/2025 10:22 PM CSTAUSTReticulocyte Canaivewjn48.530.0 - 37.6 pg 07/23/2025 10:22 PM CSTAUSTSpecimen (Source)Anatomical Location / Laterality Collection Method / VolumeCollection TimeReceived TimeBlood (Blood, Venous) 07/23/2025 4:01 PM CST07/23/2025 9:48 PM BARBER OR BEAUTY SHOP MANAGER Narrative Authorizing ProviderResult TypeResult StatusAmy L Alfonzo Higuera APRNN.P., M.S.LAB BLOOD ADD-ONFinal ResultPerforming OrganizationAddressCity/State/ZIP CodePhone Number [facility] [address] [place] [address], [facility] [address] [place] [address] * (ABNORMAL) CBC with Differential, Blood (07/23/2025 4:01 PM BARBER OR BEAUTY SHOP MANAGER)ComponentValue Ref RangeTest MethodAnalysis TimePerformed AtPathologist SignatureHemoglobin 13.511.6 - 15.0 g/dL07/23/2025 5:34 PM SWDVIYLNbdcuodxbz39.535.5 - 44.9 % 07/23/2025 5:34 PM CSTOWATErythrocytes4.293.92 - 5.13 x10(12)/L109/23/2024 5:34 PM IVJDANQZUR54.178.2 - 97.9 fL07/23/2025 5:34 PM CSTOWATRBC Distrib Width11.7 (L)12.2 - 16.1 %07/23/2025 5:34 PM CSTOWATPlatelet Hcall883565 - 371 x10(9)/L 07/23/2025 5:34 PM CSTOWATLeukocytes5.83.4 - 9.6 x10(9)/L109/23/2024 5:34 PM CSTOWATNeutrophils3.401.56 - 6.45 x10(9)/L109/23/2024 5:34 PM CSTOWAT Lymphocytes1.610.95 - 3.07 x10(9)/L109/23/2024 5:34 PM CSTOWATMonocytes0.640.26 - 0.81 x10(9)/L109/23/2024 5:34 PM CSTOWATEosinophils0.150.03 - 0.48 x10(9)/L 07/23/2025 5:34 PM CSTOWATBasophils0.030.01 - 0.08 x10(9)/L109/23/2024 5:34 PM CSTOWATSpecimen (Source)Anatomical Location / LateralityCollection Method / VolumeCollection TimeReceived TimeBlood (Blood, Venous)07/23/2025 4:01 PM BARBER OR BEAUTY SHOP MANAGER 07/23/2025 5:33 PM BARBER OR BEAUTY SHOP MANAGER Narrative Authorizing ProviderResult TypeResult StatusAmy Surinder Freed APRN.N.Perez., M.S.LAB BLOOD ADD-ONFinal ResultPerforming OrganizationAddressCity/State/ZIP CodePhone Number [facility] [address] [address], [facility] [address] [place] [address] * AST (Aspartate Aminotransferase) (07/23/2025 4:01 PM BARBER OR BEAUTY SHOP MANAGER)ComponentValueRef RangeTest MethodAnalysis TimePerformed AtPathologist SignatureAspartate Aminotransferase (AST), P288 - 43 U/L109/23/2024 6:02 PM CSTOWATSpecimen (Source)Anatomical Location / LateralityCollection Method / VolumeCollection TimeReceived TimeBlood (Blood, Venous)07/23/2025 4:01 PM CST07/23/2025 5:33 PM BARBER OR BEAUTY SHOP MANAGER Narrative Authorizing ProviderResult TypeResult StatusAmy Surinder Freed APRN.N.P., M.S.LAB BLOOD ADD-ONFinal ResultPerforming OrganizationAddressCity/State/ZIP CodePhone Number [facility] [address] [place] [address], [facility] [place] [address] [place] [address] * Alkaline Phosphatase (07/23/2025 4:01 PM BARBER OR BEAUTY SHOP MANAGER)ComponentValueRef RangeTest MethodAnalysis TimePerformed AtPathologist SignatureAlkaline Phosphatase, P48 35 - 104 U/L109/23/2024 6:02 PM CSTOWATSpecimen (Source)Anatomical Location / LateralityCollection Method / VolumeCollection TimeReceived TimeBlood (Blood, Venous)07/23/2025 4:01 PM CST07/23/2025 5:33 PM BARBER OR BEAUTY SHOP MANAGER Narrative Authorizing ProviderResult TypeResult StatusAmy Ceci Higuera APRN, C.N.P., M.S.LAB BLOOD ADD-ONFinal ResultPerforming OrganizationAddressCity/State/ZIP CodePhone Number [facility] [address] [place] [address], [place] [facility] [place] [address] [place] [address] * LD (Lactate Dehydrogenase) (07/23/2025 4:01 PM BARBER OR BEAUTY SHOP MANAGER)ComponentValueRef RangeTest MethodAnalysis TimePerformed AtPathologist SignatureLactate Dehydrogenase (LD), [id number] - 222 U/L109/23/2024 10:02 PM CSTAUSTSpecimen (Source)Anatomical Location / LateralityCollection Method / VolumeCollection TimeReceived Time Blood (Blood, Venous)07/23/2025 4:01 PM CST07/23/2025 9:48 PM BARBER OR BEAUTY SHOP MANAGER Narrative Authorizing ProviderResult TypeResult StatusAmy Ceci Higuera APRN, C.N.P., M.S.LAB BLOOD NON ADD-ONFinal ResultPerforming OrganizationAddressCity/State/ZIP Code Phone Number [facility] [address] [place] [address], [place] [facility] - [facility] [address] [place] [address] * Immunoglobulin G (IgG) (07/23/2025 4:01 PM BARBER OR BEAUTY SHOP MANAGER)ComponentValueRef RangeTest MethodAnalysis TimePerformed AtPathologist SignatureImmunoglobulin G (IgG), S 669087 - 1590 mg/dL07/24/2025 8:24 AM CSTSDSCSpecimen (Source)Anatomical Location / LateralityCollection Method / VolumeCollection TimeReceived Time Blood (Blood, Venous)07/23/2025 4:01 PM CST07/24/2025 6:36 AM BARBER OR BEAUTY SHOP MANAGER Narrative Authorizing ProviderResult TypeResult StatusAmy Ceci Higuera APRN, C.N.P., M.S.LAB BLOOD ADD-ONFinal ResultPerforming OrganizationAddressCity/State/ZIP CodePhone Number [facility] [address] [place] [address] [facility] [address] [place] [address] * Creatinine with Estimated GFR (07/23/2025 4:01 PM BARBER OR BEAUTY SHOP MANAGER)ComponentValueRef Range Test MethodAnalysis TimePerformed AtPathologist SignatureCreatinine0.720.59 - 1.04 mg/dL07/23/2025 6:02 PM CSTOWATEstimated GFR (eGFR)>90>=60 mL/min/BSA 07/23/2025 6:02 PM CSTOWATComment: Estimated GFR calculated using the 2020 CKD_EPI creatinine equation. Specimen (Source)Anatomical Location / LateralityCollection Method / Volume Collection TimeReceived TimeBlood (Blood, Venous)07/23/2025 4:01 PM BARBER OR BEAUTY SHOP MANAGER 07/23/2025 5:33 PM BARBER OR BEAUTY SHOP MANAGER Narrative Authorizing ProviderResult TypeResult StatusGerda Higuera APRN, C.N.P., M.S.LAB BLOOD ADD-ONFinal ResultPerforming OrganizationAddressCity/State/ZIP CodePhone Number [facility] [address] [address], [facility] [place] [address] [place] [address] * Bilirubin, Total (07/23/2025 4:01 PM BARBER OR BEAUTY SHOP MANAGER)ComponentValueRef RangeTest Method Analysis TimePerformed AtPathologist SignatureBilirubin, Total, P0.40.0 - 1.2 mg/dL07/23/2025 6:02 PM CSTOWATSpecimen (Source)Anatomical Location / LateralityCollection Method / VolumeCollection TimeReceived TimeBlood (Blood, Venous)07/23/2025 4:01 PM CST07/23/2025 5:33 PM BARBER OR BEAUTY SHOP MANAGER Narrative Authorizing ProviderResult TypeResult StatusGerda Higuera APRN, C.N.P., M.S.LAB BLOOD ADD-ONFinal ResultPerforming OrganizationAddressCity/State/ZIP CodePhone Number [facility] [address] [place] [address], [facility] [place] [facility] [facility] [place] [address] [place] [address] * BI Breast Screening Bilateral with Tomosynthesis (10/15/2021 3:23 PM BARBER OR BEAUTY SHOP MANAGER) Anatomical RegionLateralityModalityBreast, Breast Imaging RST LOS, Breast Imaging ARZ LOS, Breast Imaging FLA LOSBilateralMammographySpecimen (Source) Anatomical Location / LateralityCollection Method / VolumeCollection Time Received Time10/16/2021 8:48 AM BARBER OR BEAUTY SHOP MANAGER Impressions 10/16/2021 8:51 AM BARBER OR BEAUTY SHOP MANAGER Negative. RECOMMENDATION: ??Annual Screening Mammogram ASSESSMENT: ??BI-RADS: 1: Negative. Narrative 10/16/2021 8:51 AM BARBER OR BEAUTY SHOP MANAGER EXAM: BI BREAST SCREENING BILATERAL WITH TOMOSYNTHESIS Current study was evaluated with a Computer Aided Detection (CAD) system. INDICATION: ??Screening mammogram. COMPARISON: ??Prior exam(s) were available and reviewed for comparison. DENSITY: ??c. The breast(s) are heterogeneously dense, which may obscure small masses. FINDINGS: ??No findings of malignancy. ??No significant change since prior exam. Procedure Note Jodi Cristobal M.D. - 10/16/2021 EXAM: BI BREAST SCREENING BILATERAL WITH TOMOSYNTHESIS Current study was evaluated with a Computer Aided Detection (CAD) system. INDICATION: Screening mammogram. COMPARISON: Prior exam(s) were available and reviewed for comparison. DENSITY: c. The breast(s) are heterogeneously dense, which may obscuresmall masses. FINDINGS: No findings of malignancy. No significant change since priorexam. IMPRESSION: Negative. RECOMMENDATION: Annual Screening Mammogram ASSESSMENT: BI-RADS: 1: Negative. Authorizing ProviderResult TypeResult StatusJuan Fregoso M.D.IMG BI PROCEDURES Final Result * Colonoscopy (02/02/2021 12:19 PM CDT)Anatomical RegionLateralityModality EndoscopySpecimen (Source)Anatomical Location / LateralityCollection Method / VolumeCollection TimeReceived Time02/02/2021 12:19 PM CDT Impressions 02/02/2021 12:58 PM CDT Post-op Diagnoses: ? - The entire examined colon is normal. Biopsied. ? - The examined portion of the ileum was normal. Narrative 02/02/2021 12:58 PM CDT [facility] GI Patient Name: Shannon Weaver Date of : 1965 Age: 55 Gender: Female Procedure Date: 02/02/2021 Procedure: ? Colonoscopy Providers: ? aCnde To MD Referring Provider: ?Toni Patel MD, PhD Pre-op Diagnoses: ?Diarrhea Recommendation: ? - The patient will be observed post-procedure, until all discharge ? criteria are met. ? - Await pathology results. ? - Return to referring physician. Findings: ? The colon (entire examined portion) appeared normal. Biopsies were taken ? with a cold forceps for histology. ? The terminal ileum appeared normal. Procedural Details: ? The patient was seen, evaluated, history reviewed, airway and heart-lung ? exams were performed by licensed provider and were satisfactory for ? planned level of sedation care. ? The risks, benefits and alternatives for the procedure and sedation were ? discussed and informed consent was obtained. A procedural pause was ? conducted in the presence of assisting personnel to verify the correct ? patient identity and procedure to be performed. Throughout the ? procedure, the patient's blood pressure, pulse, and oxygen saturations ? were monitored continuously. The Pediatric Colonoscope was introduced ? under direct vision through the anus and advanced to 5 cm into the ? ileum. The colonoscopy was performed without difficulty. The patient ? tolerated the procedure well. The quality of the bowel preparation was ? good. The quality of the bowel preparation was evaluated using the BBPS ? ([place] Bowel Preparation Scale) [Segment Scores]. The total BBPS score ? equals 6. The quality of the bowel preparation was good. Estimated Blood Loss: ?Estimated blood loss was minimal. Complications: ? No immediate complications. Sedation: ? Anesthesia was administered by an anesthesia professional. The following ? parameters were monitored: oxygen saturation, heart rate, blood ? pressure, respiratory rate, EKG, adequacy of pulmonary ventilation, and ? response to care. Attending Participation: I personally performed the entire procedure. Cande To MD 02/02/2021 12:58:15 PM This report has been signed electronically. Number of Addenda: 0 Authorizing ProviderResult TypeResult StatusSayed Clint Patel M.D., Ph.D.GI PROCEDURE ORDERABLESFinal Result * Comprehensive Metabolic Panel (08/29/2020 9:13 AM BARBER OR BEAUTY SHOP MANAGER)ComponentValueRef Range Test MethodAnalysis TimePerformed AtPathologist SignaturePotassium, S4.23.6 - 5.2 mmol/L08/29/2020 10:06 AM CSTDTLSodium, O501102 - 145 mmol/L08/29/2020 10:06 AM CSTDTLChloride, T75079 - 107 mmol/L08/29/2020 10:06 AM CSTDTL Bicarbonate, S2822 - 29 mmol/L08/29/2020 10:06 AM CSTDTLAnion Olf520 - 15 08/29/2020 10:06 AM CSTDTLBUN (Blood Urea Nitrogen), S186 - 21 mg/dL08/29/2020 10:06 AM CSTDTLCreatinine1.000.59 - 1.04 mg/dL08/29/2020 10:06 AM CSTDTLeGFR- Non Black/ Uoyygjyy60>=60 mL/min/BSA08/29/2020 10:06 AM CSTDTLComment: ----ADDITIONAL INFORMATION---- Estimated GFR calculated using the 2009 CKD_EPI creatinine equation. eGFR-Black/ Oghopszy68>=60 mL/min/BSA08/29/2020 10:06 AM CSTDTLComment: ----ADDITIONAL INFORMATION---- Estimated GFR calculated using the 2009 CKD_EPI creatinine equation. Calcium, Total, S9.98.6 - 10.0 mg/dL08/29/2020 10:06 AM CSTDTLGlucose, X31228 - 140 mg/dL08/29/2020 10:06 AM CSTDTLProtein, Total, S7.56.3 - 7.9 g/dL08/29/2020 10:06 AM CSTDTLAlbumin, S4.83.5 - 5.0 g/dL08/29/2020 10:06 AM CSTDTLAspartate Aminotransferase (AST), S248 - 43 U/L08/29/2020 10:06 AM CSTDTLAlkaline Phosphatase, S5235 - 104 U/L08/29/2020 10:06 AM CSTDTLAlanine Aminotransferase (ALT), S297 - 45 U/L08/29/2020 10:06 AM CSTDTLBilirubin, Total, S0.5<=1.2 mg/dL 08/29/2020 10:06 AM CSTDTLSpecimen (Source)Anatomical Location / Laterality Collection Method / VolumeCollection TimeReceived TimeBlood (Blood, Venous) 08/29/2020 9:13 AM CST08/29/2020 9:36 AM BARBER OR BEAUTY SHOP MANAGER Narrative Authorizing ProviderResult TypeResult StatusJuan Fregoso M.D.LAB BLOOD ADD-ON Final ResultPerforming OrganizationAddressCity/[facility] CodePhone Number [facility] [address] [place] [address], [place] [facility] [address] [place] [address] * Hepatitis B Surface Antigen (10/03/2019 2:01 PM BARBER OR BEAUTY SHOP MANAGER)ComponentValueRef Range Test MethodAnalysis TimePerformed AtPathologist SignatureHBs Antigen, S SovljnepTrulalvr78/12/2020 10:06 PM CSTSDSCSpecimen (Source)Anatomical Location / LateralityCollection Method / VolumeCollection TimeReceived Time Blood (Blood, Venous)10/03/2019 2:01 PM CST10/03/2019 7:36 PM BARBER OR BEAUTY SHOP MANAGER Narrative Authorizing ProviderResult TypeResult StatusJuan Fregoso M.D.LAB MICROBIOLOGY - BLOOD ORDERABLESFinal ResultPerforming OrganizationAddressCity/State/ZIP Code Phone Number [facility] [address] [place] [address] [facility] Dept. of Laboratory Medicine and Pathology [address] [address] * (ABNORMAL) Lipid Panel (12/25/2014 8:40 AM CDT)ComponentValueRef RangeTest MethodAnalysis TimePerformed AtPathologist SignatureCholesterol, HDL, S87>=50 MG/DLCENTENNIAL MEDICAL CENTER AT ASHLAND CITYCalculated PXW254 SeeComment MG/DLCENTENNIAL MEDICAL CENTER AT ASHLAND CITYComment: ? REFERENCE VALUE ? Desirable: <100 ? Above Desirable: 100-129 ? Borderline high: 130-159 ? High: 160-189 ? Very high: > or =190 ? Cholesterol, Ilmia863(H)SeeComment /[facility] ? REFERENCE VALUE ? Desirable: < 200 ? Borderline high: 200 - 239 ? High: > or = 240 ? Kvtvgydjtiqxb21IfoPfaiywq /DLCENTENNIAL [facility] Comment: ? REFERENCE VALUE ? Normal: <150 ? Borderline high: 150-199 ? High: 200-499 ? Very high: > or =500 ? Cholesterol, Non-HDL, Xqlwehoqey424PvqPocegrp MG/DLMAED [facility]IN CAMPUSComment: ? REFERENCE VALUE ? Desirable: <130 ? Above Desirable: 130-159 ? Borderline high: 160-189 ? High: 190-219 ? Very high: > or =220 ? Specimen (Source)Anatomical Location / LateralityCollection Method / Volume Collection TimeReceived Time12/25/2014 8:40 AM CDT12/25/2014 8:40 AM CDT Narrative Authorizing ProviderResult TypeResult StatusRowlengiorgio Dow M.D., M.P.H.LAB BLOOD ADD-ONFinal ResultPerforming OrganizationAddressCity/State/ZIP CodePhone Number [facility] [address] from Last 3 Months or Most Recently Relevant to Health Maintenance Insurance * Guarantor: Shannon Weaver TypeRelation to PatientDate of BirthPhone Billing AddressPersonal/LmipczIqfr1965 [address] [place] [phone] [place] [address] Advance Directives For more information, please contact: [phone] * Full Code (Latest Code Status on File) Date ActivatedDate InactivatedComments10/12/2018 7:17 AM10/12/2018 2:47 PMQuestion AnswerCommentsFull Code:* Discussed * Full Code Date ActivatedDate InactivatedComments02/14/2018 6:32 PM02/15/2018 6:44 PMQuestion AnswerCommentsFull Code:* Discussed * Full Code Date ActivatedDate InactivatedComments02/14/2018 11:32 AM02/14/2018 6:32 PM QuestionAnswerCommentsFull Code:* Discussed Care Teams Team MemberRelationshipSpecialtyStart DateEnd Date Elsewhere, Pcp [facility]18/17
--- OUTSIDE RECORDS SUMMARY | 2025-08-19 19:03 | XMS_ITS | Clinical Summary ---
Author Organization [facility] Address [address] [place] [address] Care Team Providers Care Cold Press Operator Name Role Phone Brooke Roche Primary Care Provider [phone] Allergies Active AllergyReactionsCriticalityNoted DateCommentsCiprofloxacinPalpitations 09/03/2006Diatrizoate WxnoqtlxZuil69/14/2017 Itching Next day rash on entire body, some throat tightness. 3 days later rash not improved with medication, leg/feet swelling, eye pain (see encounter from 02/04/17) Covid-19 Vaccine, Mrna, Vet769l4, Lnp-S (lifecake)Anaphylaxis,Anxiety,Dyspnea, Edema,Headache,YgueoalsxqkgWhvx86/07/2021NitrofurantoinThrombocytopenia 03/27/2012 Medications MedicationSigDispense QuantityRefillsLast FilledStart DateEnd DateStatus multivitamin-folic acid 0.4 mg (MULTI-DAY) tablet Indications:Routine general medical examination at a health care facilityTake 1 tablet by mouth once daily. Dmnajzd864ctive cetirizine (ZYRTEC) 10 mg tablet Indications:Allergic rhinitis, cause unspecifiedTake by mouth.ctive fluticasone (50 mcg per actuation) nasal solution (FLONASE) Indications:Sinusitis, unspecified chronicity, unspecified locationInhale 1 Shepherd into both nostrils once daily. 1 Bottle 07/29/2016Active calcium carbonate-vitamin D3, 500 mg-400 units, (CALCIUM 500 WITH D) tablet Take 1 tablet by mouth once daily.Active Ventolin HFA 90 mcg/actuation inhaler Indications:BronchitisInhale 2 Puffs by mouth 4 times daily if needed for Shortness Of Breath. 1 Each 2Active albuterol HFA (PRO-AIR; VENTOLIN; PROVENTIL) 90 mcg/actuation inhaler Indications:SOB (shortness of breath)Inhale 2 Puffs by mouth every 4 hours if needed for Shortness Of Breath. 18 g 4Active famotidine (PEPCID) 20 mg tablet Indications:Abdominal pain, epigastricTake 1 Tablet (20 mg) by mouth two times daily. 60 Tablet 4Active rosuvastatin 10 mg tablet Indications:Mixed hyperlipidemiaTake 1 Tablet (10 mg) by mouth at bedtime. 90 Tablet 5Active estradioL (ESTRACE) 0.5 mg tablet Indications:MenopauseTake 1 Tablet (0.5 mg) by mouth once daily. 90 Tablet 5Active meclizine (ANTIVERT) 25 mg tablet Indications:Benign paroxysmal positional vertigo of right earTake 0.5-1 Tablets (12.5-25 mg) by mouth 3 times daily if needed for Vertigo. 30 Tablet 5Active Additional Information Patient not taking.Reason: Never picked up, Reported on 07/29/2025 Active Problems ProblemNoted DateDiagnosed DateMultiple thyroid ovlqgze3606/01/2023History of SEVERINO exposure in utero10/20/2021 Overview (12/24/2024): 2018 hysterectomy for fibroids, cervix removed, ovaries remain. 12/06/2024: NIL/HPV negative Provider Plan 11/25/22 : Needs yearly pap until age 72 due to SEVERINO exposure in utero . Pap and HPV due 11/2025 Lzhgsozjudf85/16//one pain03/14/2019Grover's klohheg8904/17/2018 Overview (11/29/2022): Has seen dermatology. Treated with steroid cream. 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 Typically, the eruption consists of intensely pruritic, erythematous papules Acxcpbmigosxld09/17/1753Jxuoyuui44/09/2015 Overview (05/30/2015): Taking Ativan 0.5 mg at bedtime for sleep. Working on insomnia issues. Ok for #30 to last for 2 months. JMB History of colon zgpwiz0603/20/2014Vitamin D myecnspvdp26/30/2014Hairy cell leukemia, in ferhhycye90Squamous cell carcinoma of skin of scalp and neck08/22/2012Chronic interstitial wjlgiphz89/03/2010Unspecified tirvkkhzwfvk76/10/2008Unspecified disorder of urethra and urinary tract 01/09/2007 Overview (01/09/2007): Frequent UTI Pure opzmfulgmlgeewrfxurx33/21/2007llergic rhinitis, cause unspecified 09/03/2006 Resolved Problems ProblemNoted DateDiagnosed DateResolved DateLymphoproliferative disorder Shoulder pain/05/20237109Omgyqyzmcvmhfgq28/05/2021 11/29/2022Encounter for screening mammogram for malignant neoplasm of breast Hematuria Overview (10/26/2020): Added automatically from request for surgery [id number] Uterine renflgxwg17 Overview (10/26/2020): Added automatically from request for surgery [id number] Drug-related creqrabu25 Overview (10/26/2020): SEVERINO exposure when fetus Pelvic pain in ekemqc18idney stone on left side02/09/2017 11/29/2022Lipoma of wqwycx92olon Irritable rkvpdhd70ysmenorrheaIntramural leiomyoma of uvjmpr81Headache(784.0) Premenstrual tension olyqxiick47Irregular menstrual cycle ystocele, Encounters DateTypeDepartmentCare JchtDkuipcoyjif06/29/2025Nurse Triage [facility] [address] [place] [address] Brooke Roche, Abdominal Pain07/29/2025 12:45 PM CSTOffice Visit [facility] [address] [place] [address] Brooke Roche, Dizziness (Still not completely gone. Ears are still ringing)07/29/2025Travel 07/26/20257894Hllrwp17/04/2025 9:35 AM CSTOffice Visit [facility] [address] [place] [address] So Hilton, Dizziness (1 day); Nausea (1 day)06/25/2025Travelfrom Last 3 Months Immunizations ImmunizationAdministration DatesNext DueAMB INFLUENZA, IIV4 (AGE=>6MOS) MDV (Flu Clinic Only)06/04/2021OVID-19 VACCINE SPIKEVAX (MODERNA 50MCG/0.5ML) 12YO+ PFS 05/24/2024,06/27/2023OVID-19 vaccine (Pfizer-BioNTech 30mcg/0.3mL) 12YO+ RUSSEL- SUCROSE PF, MDV110/14/2020OVID-19 vaccine (Pfizer-BioNTech 30mcg/0.3mL) PF, MDV 09/11/2021,10/26/2020Hepatitis A (Adult)06/21/1997,11/09/1996Influenza A (H1N1), Pjbbgptquxj58/08/2010Influenza A (H1N1), Inactivated (Age >=3 Years)08/29/2009 Influenza RIV4 (Age 18+ Years) PRESERV FREE04/30/2017Influenza Virus, Bnbawterlgc49/10/2006,06/23/2005,08/10/2004,06/20/2003Influenza, CCIIV3 (Age >=6 MO) (Egg Free)06/11/2025,06/13/2024Influenza, IIV3 (Age 6-35 mos)05/07/2010 Influenza, IIV3 (Age >=3 years)07/06/2013,08/16/2012,05/07/2010,07/01/2006, 07/01/2006,06/23/2005,08/10/2004,06/20/2003,05/22/2002,06/22/2001,07/10/1999 Influenza, NNY952/11/2018,05/17/2018,04/30/2017,04/23/2016,04/14/2015,08/28/2014 Influenza, IIV4 (=>6mos) MDV05/09/2020,05/18/2018Influenza, Injectable, Mdck, Quadrivalent, W/zumkggumkbdm79/01/2023,06/15/2022,1Pneumococcal Poly,23-Valent (Pneumovax)04/05/2019Pneumococcal conj 13-Valent (Prevnar 13) 04/17/2018Td (Age >=7 Years)04/20/2022,05/22/2003Tdap03/24/2012,08/22/2002Zoster (Shingrix-RZV, recombinant)06/29/2019,04/05/2019 Family History Medical HistoryRelationNameCommentsGood HealthFatherHypertensionMotherPhyllis WegnerOsteoporosisMotherPhyllis WegnerThyroid DiseaseMotherPhyllis Kailey HYPOTHYROIDHypertensionSister 1Nancy BerberickHypertensionSister 2Kristi Picken Thyroid DiseaseSister 2Kristi PickenThyroid cancerSister 2Kristi Picken Cancer-breastNo Family HistoryRelationNameStatusCommentsDaughterDeceasedFather DeceasedMotherPhyllis WegnerAliveSister 1Nancy BerberickAliveSister 2Kristi PickenAliveSister 3AliveSon 1AliveSon 2Alive Social History Tobacco UseTypesPacks/DayYears UsedDateSmoking Tobacco: NeverSmokeless Tobacco: Never Tobacco Cessation:Counseling Given: Yes Alcohol UseStandard Drinks/WeekCommentsYes0 (1 standard drink = 0.6 oz pure alcohol)occasionalPHQ-2AnswerDate RecordedPHQ-2 TOTAL UTUPW226Social ConnectionsAnswerDate RecordedDo you often feel lonely or isolated from those around you?lcohol UseAnswerDate RecordedHow often do you have a drink containing alcohol?How many drinks containing alcohol do you have on a typical day when you are drinking?How often do you have five or more drinks on one occasion?Financial Resource StrainAnswer Date RecordedDifficulty of Paying Living Gwkegkjp410/04/2025Difficulty of Paying Living ExpensesNot on file06/25/2025Food InsecurityAnswerDate RecordedDo you worry your food will run out before you are able to buy more? Transportation NeedsAnswerDate RecordedDoes lack of transportation keep you from medical appointments?Does lack of transportation keep you from work, meetings or getting things that you need?Housing StabilityAnswerDate RecordedWhat is your housing situation today?UtilitiesAnswerDate RecordedDo you have trouble paying for utilities (for example, heat, electricity, water, phone)?CommentsNoSex and Gender InformationValueDate RecordedSex Assigned at BirthNot on fileLegal SexFemale 09/04/2012 6:45 AM CSTGender IdentityNot on fileSexual OrientationNot on file OccupationIndustryJob Start DateJob End DateAdministrative AssistantNot on file Not on fileNot on file Obstetrics History GravidaParaTermPretermABIABSABEctopicMultipleLivingLive [id number] OutcomeGATotal LaborLabor/2nd/4ljHjlczoUkuDxzxDstoMDABlkT1D3VwcwRjgaNvycEtpqAiyx CommentsVaginal: Onur Hooks Jessica Last Filed Vital Signs Vital SignReadingTime TakenCommentsBlood Zrtvztpn537/8307/29/2025 12:45 PM ORNAMENT STAPLER Bizsg550907/29/2025 12:45 PM DNBUwaphpduwqn11.6 ??C (97.9 ??F)11/28/2024 1:21 PM CDTRespiratory Yxgs337710/18/2024 12:03 PM CSTOxygen Hdfgwicilj31%07/29/2025 12:45 PM CSTInhaled Oxygen Concentration--Ehayse80.4 kg (181 lb 9.6 oz)07/29/2025 12:45 PM VSKQajqpm134.5 cm (5' 7.13)12/06/2024 7:34 AM CDTBody Mass Index28.34 12/06/2024 7:34 AM CDT Plan of Treatment Health MaintenanceDue DateLast DoneCommentsHepatitis B series for 19+ (1 of 3 - 19+ 3-dose series)1986Pneumococcal series for age 50+ (3 of 3 - PCV20 or PCV21)/, 04/17/2018COVID-19 vaccine series ( season)/10/2023, 06/27/2023, 06/25/2022, Additional history exists BMI (ht and wt on same day) for age 18+, 12/02/2023, 11/25/2022, Additional history existsDepression screening for age 12+12/06/2025 12/06/2024, 12/02/2023, 11/25/2022, Additional history existsPap test for age 21-, 12/06/2024, 12/02/2023, Additional history exists Mammogram for age 40-, 12/15/2023, 11/18/2022, Additional history existsColonoscopy through age 7506/14/82116202/02/2021 (Verified in Care Everywhere or Patient Record), 02/20/2015, 02/20/2015, Additional history exists Lipids for age 45-750, 12/02/2023, 05/19/2023, Additional history existsTetanus rfawoik21, 03/24/2012, 05/22/2003, Additional history existsRSV vaccine for adults or (1 - 1-dose 75+ series)2042Zoster (shingles) series for age 50+Shweycnxq63/08/2019, 04/05/2019Hepatitis C screening for age 18-98Ehzpzdbif41/30/2022HIV for age 15-68Sekuiynqv97/12/2024Influenza QaigcaiMaubshfry84/21/2025, 06/13/2024, 06/22/2023, Additional history exists Procedures Procedure NamePriorityDate/TimeAssociated DiagnosisCommentsXR MAMMO RACHELE BILAT UGMDQGKsulmfi48/30/2025 7:42 AM CDT Encounter for screening mammogram for malignant neoplasm of breast BAR CATCHER THIN PREP PAP SCREEN ZRJDNPNnyloci72/17/2025 8:36 AM CDT Screening for cervical cancer LIPID PANEL W REFLEX MEASURED RDMHidgrll94/17/2025 8:30 AM CDT Mixed hyperlipidemia ANTI HIV 1/3Fxqekua68/12/2024 8:52 AM CDT Screening for HIV (human immunodeficiency virus) ANTI EVOBnwiwqk57/30/2022 8:48 AM CDT Need for hepatitis C screening test COLONOSCOPY DHOYCTFFGKscnzdw70/02/2015 History of colon polyps from Last 3 Months or Most Recently Relevant to Health Maintenance Results * XR MAMMO RACHELE BILAT SCREEN (12/19/2024 7:42 AM CDT)Anatomical RegionLaterality ModalityBREASTS, Breast Left, Breast RightBilateralMammographySpecimen (Source)Anatomical Location / LateralityCollection Method / VolumeCollection TimeReceived Time Impressions 12/21/2024 7:50 AM CDT There is no radiographic evidence for malignancy. Recommend annual mammograms. MAMMOGRAM ASSESSMENT: ??ACR 1 Negative PATIENTS: You will also receive a letter with your examination results in an easy to read format. ??If you have questions about your results, please contact your referring provider. Narrative 12/21/2024 7:50 AM CDT For Patients: As a result of the Century Cures Act, medical imaging exams and procedure reports are released immediately into your electronic medical record. You may view this report before your referring provider. If you have questions, please contact your health care provider. XR MAMMO RACHELE BILAT SCREEN [[id number]] CLINICAL HISTORY: ??This is an asymptomatic 59 y.o. patient. INDICATION FOR EXAM: Mammogram Screening. TECHNIQUE: CC and MLO views were obtained. ??This study was evaluated with the assistance of Computer-Aided Detection. Breast Tomosynthesis was used in interpretation. COMPARISON FILM: Yes 12/15/23 AllSynqera 11/18/22 AllSynqera FINDINGS: ??The breasts are heterogeneously dense, which may obscure small masses. There are no dominant masses, suspicious micro calcifications or areas of architectural distortion. Authorizing ProviderResult TypeResult StatusBrooke Roche DOMAMMOFinal Result * BAR CATCHER THIN PREP PAP SCREEN IMAGED [[id number]] (12/06/2024 8:36 AM CDT)Component ValueRef RangeTest MethodAnalysis TimePerformed AtPathologist SignatureCase ReportGynecologic Cytology Report ? Case: [id number] ? Authorizing Provider: ??Brooke Roche, DO ?Collected: ? 12/06/2024 0836 ? Ordering Location: ? [facility] ?? Received: ?12/06/2024 0837 ? Clinic ? First Screen: ?Jordi Santiago ? Specimen: ?BAR CATCHER ThinPrep Vial Screening, Cervical ? 12/21/2024 12:54 PM [facility] INTERPRETATION/RESULTNEGATIVE FOR INTRAEPITHELIAL LESION OR MALIGNANCY (NIL) (none)12/21/2024 12:54 PM [facility]AL LAB[facility]ATORY at 1254 CDT ORGANISM(S)Fungal organisms morphologically consistent with Sylvia species 12/21/2024 12:54 PM [facility]-CENTRAL LABORATORYSPECIMEN ADEQUACYSatisfactory for evaluation No endocervical component seen12/21/2024 12:54 PM [facility]- CENTRAL LABORATORYHPV REQUESTHPV and PAP12/21/2024 12:54 PM [facility]-CENTRAL LABORATORYDate of LMPn/a012/21/2024 12:54 PM [facility]-C[facility]AL LABORATORYLast Pap Date07/240512/21/2024 12:54 PM [facility]-CENTRAL LABORATORYLast Pap WsznznDMB80/02/2025 12:54 PM CDT [facility]-CENTRAL LABORATORYAbnormal Pap or [place] Bx in last 5 knwzhGt1912/21/2024 12:54 PM [facility] Menstrual YwerzoSwbpvuwtzfgwsu29/02/2025 12:54 PM [facility] CENTRAL LABORATORYColp Bx Done TdzypBw5012/21/2024 12:54 PM [facility] LABORATORYAdditional InformationNone given12/21/2024 12:54 PM [facility]TRAL LABORATORYComment: Cytology is screened at [facility] - [address], [place] [address] and [facility] - [address] [place] [address] [address] [facility] - [address] [place] [address] Interpreted at [facility] - [address], [place] [address] Automated UarryqSdsdusfhbg22/02/2025 12:54 PM [facility] LABORATORYComment:Specimen processed successfully by automated medical imaging technologist device, ThinPrep Imaging System, [employer]ANCILLARY TESTING GYNHPV Ordered, Please see separate kjhaaw6712/21/2024 12:54 PM [facility] CENTRAL LABORATORYNoteThe pap test is a screening technique, not a diagnostic procedure. It is used primarily to screen for squamous cancers and precursor lesions. Published studies have shown that it is subject to both false negative and false positive results. The pap test should not be used as the sole means to diagnose or exclude pre-malignant and malignant lesions.12/21/2024 12:54 PM CDT [facility] LABORATORYSpecimen (Source)Anatomical Location / LateralityCollection Method / VolumeCollection TimeReceived TimeOther (Cervical)Non-Blood / Mkdpmso1312/06/2024 8:36 AM CDT12/06/2024 8:37 AM CDT Narrative Authorizing ProviderResult TypeResult StatusBrooke Roche DO PATHOLOGY/CYTOLOGYFinal ResultPerforming OrganizationAddressCity/State/ZIP Code Phone Number [facility] [address] [place] [address], [place] * (ABNORMAL) LIPID PANEL W REFLEX MEASURED LDL (12/06/2024 8:30 AM CDT)Component ValueRef RangeTest MethodAnalysis TimePerformed AtPathologist Signature CHOLESTEROL, NDWVW883(H)<200 mg/dLQuest [email or web address] DaleHDL FKAQNHLYOZV24 > OR = 50 mg/dLQuest [email or web address] JeewZZBPRZGTOCCCQ123<150 mg/dLQuest [email or web address] Critical Access HospitaleLDL-SISDEIXCAPT324(H)mg/dL (calc)[facility] KidZui-Mar Lin DaleComment: Reference range: <100 Desirable range <100 mg/dL for primary prevention; <70 mg/dL for patients with CHD or diabetic patients with > or = 2 CHD risk factors. LDL-C is now calculated using the Timmy calculation, which is a validated novel method providing better accuracy than the Friedewald equation in the estimation of LDL-C. Maurilio SS et al. MICHAEL. 2013;310(19): 8773-7776 (http://education.[employer]/faq/UIE977) CHOL/HDLC RATIO2.5<5.0 (calc)[facility] KidZui-Cass Lake HospitaleNON HDL AXZXTSMPLPW039 <130 mg/dL (calc)[facility] YooliCass Lake HospitaleComment: For patients with diabetes plus 1 major ASCVD risk factor, treating to a non-HDL-C goal of <100 mg/dL (LDL-C of <70 mg/dL) is considered a therapeutic option. Specimen (Source)Anatomical Location / LateralityCollection Method / Volume Collection TimeReceived TimeBloodBLOOD SPECIMEN / Rqnqxxm9412/06/2024 8:30 AM CDT 12/06/2024 8:31 AM CDT Narrative [facility] - 12/07/2024 5:24 AM CDT FASTING:YES FASTING: YES Authorizing ProviderResult TypeResult StatusBrooke Roche DOCHEMISTRYFinal ResultPerforming OrganizationAddressCity/State/ZIP CodePhone Number [facility]weevr [facility] [address] [place] [address], [employer] [facility] [address] [place] [address] * ANTI HIV 1/2 [22392.0] (12/02/2023 8:52 AM CDT)ComponentValueRef RangeTest MethodAnalysis TimePerformed AtPathologist SignatureHIV-1/HIV-2 SCREEN Whu-BjlqdkqoBow-Crivyjpn11/12/2024 4:51 PM CDBALLAD HEALTH LABORATORY-CENTRAL LABORATORYComment:HIV-1 p24 and HIV-1/HIV-2 Ab Not Detected.Specimen (Source) Anatomical Location / LateralityCollection Method / VolumeCollection Time Received TimeBloodBLOOD SPECIMEN / UnknownVenipuncture / Upkryyz1812/02/2023 8:52 AM CDT12/02/2023 8:56 AM CDT Narrative Authorizing ProviderResult TypeResult StatusBrooke Roche DOSEND OUTSFinal ResultPerforming OrganizationAddressty/State/ZIP CodePhone Number [facility] [address] [place] [address], * ANTI HCV (04/20/2022 8:48 AM CDT)ComponentValueRef RangeTest MethodAnalysis TimePerformed AtPathologist SignatureHEPATITIS C ANTIBODYNon-Reactive Non-Npgqtehv78/30/2022 9:32 PM CDBALLAD HEALTH LAB[facility]ATORYCENTRAL LABORATORY Comment:Antibodies to HCV not detected; does not exclude the possibility of exposure to HCV.Specimen (Source)Anatomical Location / LateralityCollection Method / VolumeCollection TimeReceived TimeBloodBLOOD SPECIMEN / Unknown Venipuncture / Nztvjgv3704/20/2022 8:48 AM CDT04/20/2022 8:50 AM CDT Narrative Authorizing ProviderResult TypeResult StatusGejh Wang MDSEND OUTS Final ResultPerforming OrganizationAddressty/State/ZIP CodePhone Number [facility] [address] [place] [address], * COLONOSCOPY SCREENING (02/20/2015) Narrative Authorizing ProviderResult TypeResult StatusKori Chisholm PROCEDURE ORD Final Result from Last 3 Months or Most Recently Relevant to Health Maintenance Insurance * Guarantor: Shannon Weaverount TypeRelation to PatientDate of BirthPhone Billing AddressPersonal/CssijzKmta1965 [address] [place] [address] * Guarantor: Shannon Weaverount TypeRelation to PatientDate of BirthPhone Billing AddressWorkers DxnxBxvy1965 [address] [place] [address] Advance Directives * Full Code (Latest Code Status on File) Date ActivatedDate PqbgxybznsnQcfwlktu42/30/2008 8:49 AM06/20/2008 2:58 PM Care Teams Team MemberRelationshipSpecialtyStart DateEnd Date Brooke Roche [place] [address] PCP - GeneralFamily Zblyirsi99/1/24
--- OUTSIDE RECORDS SUMMARY | 2025-08-19 19:03 | XMS_ITS ---
Author Organization 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 ProblemNoted DateDiagnosed DateNeed Vaccine Tswdkqtaefer47/16/2021Reaction Anaphylactic Personal Nfozftl36/16/2021Pain Shoulder Left08/29/2020 Tglucofktlqbqmg15/05/2021creening Mammogram Average Risk Wznepxs4005/23/2019Pain Bone03/14/20191113Lcenpvolp62/08/2019 Overview (09/29/2018): Added automatically from request for surgery [id number] Stone Kidney And Drwvubmx90/08/2019 Overview (09/29/2018): Added automatically from request for surgery [id number] Leiomyoma (Fibroid) Xnpbgy3802/02/2018 Overview (02/02/2018): Added automatically from request for surgery [id number] Exposure Diethylstilbestrol When Was Fetus Not Now11/18/2017 Overview (11/18/2017): SEVERINO exposure when fetus Pain Pelvic Jmizqe3911/18/20174328Zubyorzlvwfuvy90/17/2017Calculus of urmqie0802/09/2017 Bvinembx10/09/2015 Overview (11/16/2017): Overview: Taking Ativan 0.5 mg at bedtime for sleep. Working on insomnia issues. Ok for #30 to last for 2 months. JMB Polyp Colon Personal History, Unspecified Type03/20/2014Deficiency Vitamin D 03/20/2014Squamous Cell Carcinoma Of Skin Of Scalp And Neck08/22/2012 Zfhgvjhjlhuk77/03/2010Cystitis Interstitial Peynfdw1606/24/2010Fibroid Uterus Imtonwznzk43/03/2010Headache Geqozlrkiql98/10/6299Vjsrjfhtbgom41/10/2008 Premenstrual Tension Ysyvibvf59/21/2007Pure Ycycgikwdlureezmskdj42/21/2007 Rhinitis Ftylusiz79/13/2007Fibrocystic Breast Qzrewshap06/13/2007 Current Treatment and Therapy Plans No current plan information found. Past Treatment and Therapy Plans Plan NameStart DateDiscontinue DateTreatment MedicationsDiscontinue ReasonPlan ProviderCyclesPCR ( Pentostatin / Cyclophosphamide / riTUXimab )10/31/2019 10/06/2021* pentostatin (Nipent) * pentostatin (Nipent) IVPB 50 mL solution * riTUXimab (Rituxan) * riTUXimab (Rituxan) IVPB (RESTRICTED) (Rituxan) Therapy Juan Bowser M.D.1 of 6 cycles started Lifetime Dose Tracking * ChemicalLifetime DoseAutomatic EntryManual KoedsLgxyigedu26.4 mGy18.4 mGy0 mGy Fluoro Time2.1 minutes2.1 minutes0 minutes Resolved Problems ProblemNoted DateDiagnosed DateResolved DateHairy Cell Leukemia In Remission Palpitations12/25/Lipoma01// Dyspnea NOS03/02/Irritable Vcfwxjk87Cystocele Frequency Aycyjqv19Irregular menstrual cycle
[2025-08-19 19:04] VITALS: BP 133/84; PULSE 98; RESP 16; TEMP 35.7; O2SAT 99; BMI 29.3
--- NOTE | 2025-08-19 19:13 | ED_ITS ---
HPI - Abdominal Pain General Time Seen by Provider: 19:13 Date Seen: 08/19/25 Chief Complaint: Abdominal Pain Stated Complaint: abdominal pain Time Seen by Provider: 08/19/25 19:06 Source: patient, RN notes reviewed and old records reviewed Mode of arrival: ambulatory Limitations: no limitations History of Present Illness HPI narrative: 60-year-old female who comes in today with abdominal pain. Patient notes 3 days of epigastric and left upper quadrant pain. This is worse when she eats, also some nausea but no vomiting. Reports increased belching today as well. No diarrhea constipation, no dark or tarry stools. No right-sided abdominal pain, no fevers or chills. Has not taken anything for this. Related Data Home Medications ?Medication ?Instructions ?Recorded ?Confirmed clobetasol 0.05 % topical cream topical BID PRN estradiol 0.5 mg tablet mg PO 08/19/25 rosuvastatin 10 mg tablet 10 mg PO QPM 08/19/25 Previous Rx's ?Medication ?Instructions ?Recorded famotidine 20 mg tablet (Pepcid) 20 mg PO BID 14 days #28 tabs 08/19/25 ondansetron 4 mg disintegrating 4 mg PO Q6H PRN nausea and 08/19/25 tablet vomiting #20 tabs sucralfate 100 mg/mL oral 10 ml PO QID 7 days #280 mL 08/19/25 suspension Allergies Allergy/AdvReac Type Severity Reaction Status Date / Time ciprofloxacin (From Cipro) Allergy Intermediate rapid Verified 08/19/25 19:14 heart rate nitrofurantoin Allergy Intermediate Verified 08/19/25 19:14 Iodinated Contrast Media Allergy Unknown Verified 08/19/25 19:14 COVID vaccine Allergy Severe Anaphylaxis Uncoded 08/19/25 19:14 Exam Narrative: Exam Narrative: General: Well-developed and well-nourished, no acute distress Head: Atraumatic and normocephalic Eyes: Pupils are equal reactive, extraocular motions intact, conjunctiva clear ENT: External nose and ears are normal, posterior pharynx without erythema or exudate Neck: No midline cervical tenderness, full spontaneous range of motion the neck, trachea midline, no adenopathy Heart: Regular rate and rhythm no murmurs or thrills Lungs: Clear to auscultation bilaterally without wheezes or crackles Abdomen: Soft, tenderness of the epigastrium and just left to the epigastrium, no right upper quadrant tenderness, nondistended with active bowel sounds Musculoskeletal: No tenderness, deformity, or edema Neurologic: Awake, alert, and oriented x3, no gross focal neurologic deficits, cranial nerves intact as tested Psych: Mood and affect are appropriate Skin: No rashes Const: Vital Signs, click to edit/add: Vital Signs - 24 hr 08/19/25 19:04 08/19/25 20:43 Temperature 96.2 F L Pulse Rate [Pulse Oximeter] 98 84 Respiratory Rate 16 18 Blood Pressure [Ri ght Upper Arm] 133/84 Pulse Oximetry 99 99 Oxygen Delivery Me thod Room Air Room Air Course Course ED Course: Additional records reviewed: ultrasound from January 2020 which showed a 9 mm benign polyp, also oncology telemedicine visit from July 26 which was follow-up for hairy cell leukemia, in remission since 2019. Additional history from: spouse Care impacted by: history of leukemia, no gallbladder polyp Testing considered but not performed: See ED course Disposition: patient seen examined, presents today with epigastric pain, postprandial, going on for the last several days. Increased belching as well. On exam here, tenderness of the epigastrium and just lateral the epigastrium. Suspect gastritis or Gastric ulcer, however cannot exclude gallbladder disease, although minimal right upper quadrant tenderness. nanotechnology engineering technologist is here now and so ultrasound will be obtained prior to labs, will proceed with CT abdomen and pelvis if needed. Reevaluation(s) Time of Reevaluation #1: 20:07 Reevaluation #1: Labs independently interpreted by me with normal CBC, normal basic panel. Ultrasound in panel interpreted by me with previously known Darío up but no other acute findings. CT ordered. Time of Reevaluation #2: 20:50 Reevaluation #2: IMPRESSION CT A/P Mild gastric antral wall thickening with subtle mesenteric stranding. Low-grade gastritis not excluded. Otherwise, no acute intra-abdominal/pelvic abnormality, including free intraperitoneal air, drainable fluid collections, for obstructive uropathy as questioned. Tiny nonobstructing right renal stone. Moderate colonic stool burden. IMPRESSION RUQ US 1. Nonshadowing adherent stone, sludge ball or polyp in the gallbladder measuring 6 mm. At a minimum, ultrasound follow-up in 6 months recommended for further evaluation. 2. No biliary ductal dilatation. Time of Reevaluation #3: 20:51 Reevaluation #3: Updated patient with findings and plan. Labs are reassuring, CT scan does demonstrate findings of gastritis, polyp of the gallbladder again visualized although seems little bit smaller than prior. Patient will be started on Carafate, Zofran, Pepcid and follow up with primary care. If symptoms persist consider EGD or testing for H pylori. Vital Signs Vital signs: Initial Vital Signs Temperature 96.2 F L 08/19/25 19:04 Temperature Source Temporal Artery Scan 08/19/25 19:04 Pulse Rate 98 08/19/25 19:04 Respiratory Rate 16 08/19/25 19:04 Blood Pressure 133/84 08/19/25 19:04 Blood Pressure Mean 100 08/19/25 19:04 Blood Pressure Position Sitting 08/19/25 19:04 Pulse Oximetry 99 08/19/25 19:04 Oxygen Delivery Method Room Air 08/19/25 19:04 Vital Signs Temperature 96.2 F L 08/19/25 19:04 Pulse Rate 98 08/19/25 19:04 Respiratory Rate 16 08/19/25 19:04 Blood Pressure 133/84 08/19/25 19:04 Pulse Oximetry 99 08/19/25 19:04 Oxygen Delivery Method Room Air 08/19/25 19:04 Temperature 96.2 F L 08/19/25 19:04 Pulse Rate 84 08/19/25 20:43 Respiratory Rate 18 08/19/25 20:43 Blood Pressure 133/84 08/19/25 19:04 Pulse Oximetry 99 08/19/25 20:43 Oxygen Delivery Method Room Air 08/19/25 20:43 Medications Administered Medications: Discontinued Medications Generic Name Dose Route Start Last Admin Trade Name Freq PRN Reason Stop Dose Admin Famotidine 20 mg 08/19/25 19:30 08/19/25 20:03 Famotidine 10 Mg/Ml Inj IVP 08/19/25 19:31 20 mg ONCE ONE Administration Lidocaine/Aluminum/Magnesium/Simeth 30 ml 08/19/25 19:30 08/19/25 20:04 Gi Cocktail (Visc Lido/Antacid) 30 Ml PO 08/19/25 19:31 30 ml ONCE ONE Administration Ondansetron HCl 4 mg 08/19/25 19:30 08/19/25 20:04 Ondansetron 2 Mg/Ml Inj IVP 08/19/25 19:31 4 mg ONCE ONE Administration MDM - Abdominal Pain Lab Data Labs: Lab Results 08/19/25 08/19/25 Range/Units 19:16 19:32 WBC 8.04 (4.50-11.00) K/uL RBC 4.62 (4.00-5.20) m/uL Hgb 14.3 (12.0-16.0) gm/dL Hct 42.6 (33.0-51.0) % MCV 92 (80-100) fL MCH 31 (26-34) pg MCHC 34 (32-36) gm/dL RDW Coeff of [place] 11.4 L (11.5-15.5) % Plt Count 262 (140-440) K/uL Neut % (Auto) 72.7 H (42.0-72.0) % Lymph % (Auto) 16.8 L (20-44) % [place] % (Auto) 8.7 (0.0-11.0) % Eos % (Auto) 1.4 (0.0-7.0) % Baso % (Auto) 0.4 (0.0-3.0) % Neut # (Auto) 5.80 (1.7-7.0) K/uL Lymph # (Auto) 1.40 (0.90-2.90) K/uL [place] # (Auto) 0.70 (0.00-0.90) K/UL Eos # (Auto) 0.11 (0.00-0.50) K/uL Baso # (Auto) 0.03 (0.00-0.30) K/uL Abs Immat Gran (auto) 0.00 (0.00-0.30) K/uL Imm/Tot Granulo (auto) 0.0 % Sodium 138 (135-149) mmol/L Potassium 3.6 (3.6-5.1) mmol/L Chloride 99 (96-114) mmol/L Carbon Dioxide 31 (20-32) mmol/L Anion Gap 8 (7-15) mEq/L BUN 18 (7-30) mg/dL Creatinine 1.0 (0.5-1.5) mg/dL Estimated Creat Clear 57.41 Estimated GFR 65 ml/min Glucose 123 H (60-115) mg/dL Calcium 9.5 (8.4-10.6) mg/dL Magnesium 1.7 (1.5-2.6) mg/dL Total Bilirubin 0.6 (0.1-1.5) mg/dL Direct Bilirubin 0.1 (0.0-0.5) mg/dL AST 30 (12-35) U/L ALT 24 (4-35) U/L Alkaline Phosphatase 50 (40-150) U/L Total Protein 7.9 (6.0-8.3) g/dL Albumin 4.7 (3.3-5.0) g/dL Lipase 117 (23-300) U/L Urine Color Yellow (Yellow) Urine Appearance Clear (Clear) Urine pH 5.5 (5.0-8.5) Ur Specific [place] >= 1.030 (1.000-1.030) Urine Protein Negative (Negative) Urine Glucose (UA) Negative (Negative) Urine Ketones Negative (Negative) Urine Blood 1+ A (Negative) Urine Nitrite Negative (Negative) Urine Bilirubin Negative (Negative) Urine Urobilinogen 0.2 (0.2-1.0) Ur Leukocyte Esterase Negative (Negative) Urine RBC 2-5 A (0-2) Urine WBC 0-2 (0-5) Ur Squamous Epith Cells Few (None-Few) Urine Bacteria Few A (None) Discharge Plan Discharge Clinical Impression: Gastritis Patient Disposition: Home, Self-Care Condition: Stable Instructions: Gastritis (DC) Additional Instructions: [place] diet for 24 hours. Avoid alcohol, carbonated beverages, caffeinated beverages. Take Pepcid and Carafate as prescribed. Follow-up with your primary care doctor in 1-2 weeks for recheck and consideration for further testing. Activity Level: No Restrictions Discharge Diet: Regular Prescriptions: New famotidine [Pepcid] 20 mg tablet 20 mg PO BID 14 Days Qty: 28 0RF sucralfate 100 mg/mL suspension 10 ml PO QID 7 Days Qty: 280 0RF Rx Instructions: swish in mouth and swallow; use after food/drink ondansetron 4 mg tablet,disintegrating 4 mg PO Q6H PRN (Reason: nausea and vomiting) Qty: 20 0RF No Action clobetasol 0.05 % cream topical BID PRN estradiol 0.5 mg tablet PO rosuvastatin 10 mg tablet 10 mg PO QPM Follow Up/Referrals: Brooke Roche DO [Primary Care Provider, Family Practice] Stand Alone Forms: [employer] Info Instructions
--- NOTE | 2025-08-19 19:27 | CRLHL7_ITS ---
For Patients: As a result of the Century Cures Act, medical imaging exams and procedure reports are released immediately into your electronic medical record. You may view this report before your referring provider. If you have questions, please contact your health care provider. INDICATION: Epigastric pain, postprandial. TECHNIQUE: Ultrasound abdomen limited to evaluation of the gallbladder and common bile duct. COMPARISON: None. FINDINGS: Gallbladder: Oval echogenic nonshadowing focus about the wall measures 6 mm. No shadowing stones, wall thickening or pericholecystic fluid. Common bile duct: 4 mm. No free fluid evident. IMPRESSION: 1. Nonshadowing adherent stone, sludge ball or polyp in the gallbladder measuring 6 mm. At a minimum, ultrasound follow-up in 6 months recommended for further evaluation. 2. No biliary ductal dilatation. Dictated by Tano Ybarra MD @ 08/19/2025 8:20:07 PM (Electronically Signed)
[2025-08-19 19:49] LABS: Hematocrit* 42.6 % (33.0-51.0); Hemoglobin* 14.3 gm/dL (12.0-16.0); Immature Granulocytes Abs Auto 0.00 K/uL (0.00-0.30); Immature Granulocytes Pct Auto 0.0 %; Mean Corpuscular HGB Conc 34 gm/dL (32-36); Mean Corpuscular Hemoglobin 31 pg (26-34); Mean Corpuscular Volume 92 fL (80-100); RDW Coefficient of Variation % 11.4 % (11.5-15.5); Red Blood Count* 4.62 m/uL (4.00-5.20); White Blood Count* 8.04 K/uL (4.50-11.00)
[2025-08-19 19:49] LABS: Appearance Urine Clear (Clear)
[2025-08-19 19:51] LABS: Lymphocytes Absolute Auto 1.40 K/uL (0.90-2.90); Slide Review Reflex No
[2025-08-19 20:03] LABS: Albumin* 4.7 g/dL (3.3-5.0); Chloride* 99 mmol/L (96-114); Potassium* 3.6 mmol/L (3.6-5.1); Sodium* 138 mmol/L (135-149)
[2025-08-19] MEDS: FAMOTIDINE 10 MG/ML inj 20 MG IVP (20:03)
[2025-08-19] MEDS: ONDANSETRON 2 MG/ML inj 4 MG IVP (20:04)
[2025-08-19] MEDS: GI COCKTAIL (VISC LIDO/ANTACID) 30 ML PO (20:04)
[2025-08-19 20:06] LABS: Alanine Aminotransferase* 24 U/L (4-35); Alkaline Phosphatase* 50 U/L (40-150); Anion Gap 8 mEq/L (7-15); Aspartate Amino Transferase* 30 U/L (12-35); Bilirubin Direct* 0.1 mg/dL (0.0-0.5); Bilirubin Total* 0.6 mg/dL (0.1-1.5); Blood Urea Nitrogen* 18 mg/dL (7-30); Calcium* 9.5 mg/dL (8.4-10.6); Carbon Dioxide* 31 mmol/L (20-32); Creatinine* 1.0 mg/dL (0.5-1.5); Est. Creatinine Clearance* 57.41; Estimated Glomerular Filt Rate 65 ml/min; Glucose* 123 mg/dL (60-115); Total Protein* 7.9 g/dL (6.0-8.3)
--- NOTE | 2025-08-19 20:08 | CRLHL7_ITS ---
For Patients: As a result of the Century Cures Act, medical imaging exams and procedure reports are released immediately into your electronic medical record. You may view this report before your referring provider. If you have questions, please contact your health care provider. INDICATION: Upper abdominal pain. TECHNIQUE: CT abdomen and pelvis without contrast. COMPARISON: None. FINDINGS: Lower chest: Scattered atelectasis. Liver: Normal in size and attenuation. No suspicious masses. Gallbladder and bile ducts: No stones or inflammation. No biliary dilatation. Pancreas: Unremarkable. No mass or inflammation. Spleen: Normal in size. No masses. Adrenal glands: Normal in size. No nodules. Kidneys: Normal in size. Tiny nonobstructing right renal stone. No suspicious masses, stones, or hydronephrosis. GI tract: Mild gastric antral wall thickening with subtle mesenteric stranding (series 2/image 40). Moderate colonic stool burden. No bowel obstruction. Normal appendix. Vasculature: Abdominal aorta is normal in caliber. Lymph nodes: No lymphadenopathy. Peritoneum/Abdominal Wall: Unremarkable. No sign of mass or infiltration. No free air or significant free fluid. Pelvis: Prior hysterectomy. No pelvic masses. Bones: Unremarkable for age. IMPRESSION: Mild gastric antral wall thickening with subtle mesenteric stranding. Low-grade gastritis not excluded. Otherwise, no acute intra-abdominal/pelvic abnormality, including free intraperitoneal air, drainable fluid collections, for obstructive uropathy as questioned. Tiny nonobstructing right renal stone. Moderate colonic stool burden. Please note that all CT scans at this facility use dose modulation, iterative reconstruction, and/or weight-based dosing when appropriate to reduce radiation dose to as low as reasonably achievable. Dictated by Corbin Chaudhari MD @ 08/19/2025 8:47:36 PM (Electronically Signed)
[2025-08-19 20:43] VITALS: PULSE 84; RESP 18; O2SAT 99
== END 2025-08-19 21:11 | disposition home or self-care (01) ==
PROVIDERS: Emergency Provider Family Medicine; PCP Family Medicine
DX: K29.70 Gastritis, unspecified, without bleeding (principal)
CPT/HCPCS: 36415; 74176; 76705; 80048; 80076; 81001; 83690; 83735; 85025; 87086; 96374; 96375; 99284; 99285; A9270; J1308; J2405